=== PATIENT | female | born 1975 | race Caucasian/White ===

== ENCOUNTER 2022-01-05 09:58 | Outpatient (CLI) | payer BC, SELFPAY ==
--- NOTE | ~2022-01-05 | MM_ITS ---
EXAMINATION: MM screening ish BI w paul HISTORY: Screening TECHNIQUE: Craniocaudal and mediolateral oblique 3-D tomosynthesis images were obtained and synthetic 2-D images were generated. CAD analysis was submitted and interpreted. COMPARISON: No prior mammogram is available for comparison at this institution. BREAST PARENCHYMAL COMPOSITION: The breasts are heterogeneously dense, which may obscure small masses . FINDINGS: There are bilateral breast asymmetries in the outer aspect of the right breast best seen on CC view and in the subareolar location of the left breast. There are no suspicious calcifications or architectural distortion. IMPRESSION: 1. Bilateral breast asymmetries. 2. Additional mammographic views and possible breast ultrasound are recommended. BI-RADS Category 0: Incomplete: Needs additional imaging evaluation. Reviewed, dictated and finalized at location A. IMPRESSION: 1. Bilateral breast asymmetries. 2. Additional mammographic views and possible breast ultrasound are recommended . BI-RADS Category 0: Incomplete: Needs additional imaging evaluation.
== END 2022-01-05 09:59 | disposition home or self-care (01) ==
LOC: ANHIMG 10:00
PROVIDERS: Visit Provider Obstetrics & Gynecology
DX: Z12.31 Encounter for screening mammogram for malignant neoplasm of breast (principal)
CPT/HCPCS: 77063; 77067

== ENCOUNTER 2022-01-16 11:53 | Outpatient (CLI) | payer BC, SELFPAY ==
--- NOTE | ~2022-01-16 | MMUS_ITS ---
EXAMINATION: MM diagnostic ish BI w paul, US breast BI complete HISTORY: Follow-up breast asymmetries TECHNIQUE: Additional 3-D tomosynthesis images of the breasts were performed and synthetic 2-D images were generated. CAD analysis was submitted and interpreted. High resolution bilateral complete breas t ultrasound was performed. COMPARISON: 01/05/2022 BREAST PARENCHYMAL COMPOSITION: Breast composed of scattered areas of fibroglandular density FINDINGS: MAMMOGRAPHIC FINDINGS: Bilateral breast asymmetries are less apparent with spot compression views. There are no discrete mas ses or architectural distortion. There are no suspicious calcifications. ULTRASOUND: Complete bilateral US of all 4 quadrants of the breasts and retroareolar region was reviewed. Right breast ultrasound: There are multiple small cysts of the right breast measuring 4 mm or less. T here is a normal-appearing 11 mm lymph node which retains normal fatty hilum. Left breast ultrasound: There are multiple cysts of the left breast measuring up to 4 mm. At 10:00, 2 cm from the nipple there is a slightly irregular shaped 3 mm hypoechoic mass, likely minimally compl icated cyst. IMPRESSION: 1. Probable benign 3 mm left breast mass at 10:00, 2 cm from the nipple. No evidence for malignancy i n the right breast. 2. Recommend 6 month follow-up Limited left breast ultrasound BI-RADS category 3, probably benign findings. Reviewed, dictated and finalized at location A. IMPRESSION: 1. Probable benign 3 mm left breast mass at 10:00, 2 cm from the nipple. No lucy dence for malignancy in the right breast. 2. Recommend 6 month follow-up Limited left breast ultrasound BI-RADS category 3, probably benign findings.
== END 2022-01-16 11:54 | disposition home or self-care (01) ==
LOC: ANHIMG 11:55
PROVIDERS: Visit Provider Obstetrics & Gynecology
DX: R92.8 Other abnormal and inconclusive findings on diagnostic imaging of breast (principal)
CPT/HCPCS: 76641; 77062; 77066; G0279

== ENCOUNTER 2022-06-27 08:41 | Outpatient (CLI) | payer BC, SELFPAY ==
[2022-06-27 08:51] LABS: Hematocrit 42.7 % (35.0-49.0); Hemoglobin 14.6 g/dL (12.0-15.0); Mean Corpuscular HGB Conc 34.2 g/dL (32.0-36.0); Mean Corpuscular Hemoglobin 33.1 pg (27.0-31.0); Mean Corpuscular Volume 96.8 fL (78.0-102.0); Mean Platelet Volume 9.3 fl (9.2-11.8); Platelet Count Result 279 K/mm3 (150-420); Red Blood Count 4.41 M/mm3 (4.20-5.40); Red Cell Distribution Width 11.1 % (11.6-14.4)
[2022-06-27 09:41] LABS: Alanine Aminotransferase 26 U/L (14-59); Albumin Level 3.9 g/dL (3.4-5.0); Alkaline Phosphatase 68 U/L (46-116); Anion Gap 8 mmol/L (8-16); Aspartate Amino Transferase 24 U/L (15-37); Bilirubin,Total 0.8 mg/dL (0.00-1.00); Blood Urea Nitrogen 13 mg/dL (7-18); Calcium 8.9 mg/dL (8.5-10.1); Carbon Dioxide 30 mmol/L (21-32); Chloride 106 mmol/L (98-108); Cholesterol 217 mg/dL (0-200); Estimated Glomerular Filt Rate > 60; Glucose 79 mg/dL (70-99); HDL Direct 88 mg/dL (40-60); LDL Cholesterol Calculated 120 mg/dL (<130); Osmolality Calculated 297 mOsm/kg (285-295); Potassium 4.3 mmol/L (3.5-5.1); Sodium 144 mmol/L (136-145); Total Protein 6.9 g/dL (6.4-8.2); Triglycerides 43 mg/dL (0-150)
[2022-06-27 09:47] LABS: Thyroid Stimulating Hormone Reflex 2.27 u/IU/mL (0.36-3.74)
== END 2022-06-27 08:42 | disposition home or self-care (01) ==
LOC: CHSLAB 08:43
PROVIDERS: PCP Family Medicine; Visit Provider Family Medicine
DX: R06.00 Dyspnea, unspecified (principal); E11.9 Type 2 diabetes mellitus without complications
CPT/HCPCS: 36415; 80053; 80061; 84443; 85027

== ENCOUNTER 2022-07-03 08:21 | Outpatient (CLI) | payer BC, SELFPAY ==
--- NOTE | 2022-07-03 08:25 | EST_ITS ---
Patient Info Name: Priyanka Stern Age: 47 years : 1975 Gender: Female Ht: 67 in Wt: 144 lbs BSA: 1.76 m2 HR: 89 bpm BP: 119 / 87 mmHg Heart Rhythm: Sinus Rhythm Technical Quality: Good Exam Date: 07/03/2022 8:45 AM Exam Location: [facility] Patient Status: Outpatient Admit Date: 07/03/2022 Staff Ordering Physician: Jerod Pete DO Attending Provider: Jerod Pete DO Exercise Technologist: Liyah Beltrán CRT Exercise Physician: Kelley Armenta CEP Exam Type: CA stress test treadmill Study Info Indications Dyspnea - An exercise stress test was performed. History/Risk Factors Dyspnea. Summary 1. 1. Negative Dionicio exercise stress test for ischemic ST changes by ECG criteria. 2. 2. Good functional capacity, achieving 10 METs of workload. 3. 3. Hypertensive response to exercise. 4. 4. Appropriate HR response to exercise. 5. 5. Appropriate HR recovery at 1 minute post exercise. 6. 6. No imaging with stress testing. Protocol: Dionicio Stress ECG Details Stage: REST Duration (min): 1 min : 3 sec Speed (mph): 0.0 Grade (%): 0 HR (bpm): 90 SBP (mmHg): 119 DBP (mmHg): 87 METS: --- Stage: REST Duration (min): 4 min : 36 sec Speed (mph): 0.0 Grade (%): 0 HR (bpm): 100 SBP (mmHg): 119 DBP (mmHg): 87 METS: --- Stage: STAGE 1 Duration (min): 1 min : 0 sec Speed (mph): 1.7 Grade (%): 10 HR (bpm): 107 SBP (mmHg): 119 DBP (mmHg): 87 METS: --- Stage: STAGE 1 Duration (min): 2 min : 0 sec Speed (mph): 1.7 Grade (%): 10 HR (bpm): 122 SBP (mmHg): 119 DBP (mmHg): 87 METS: --- Stage: STAGE 1 Duration (min): 3 min : 0 sec Speed (mph): 1.7 Grade (%): 10 HR (bpm): 121 SBP (mmHg): 169 DBP (mmHg): 71 METS: --- Stage: STAGE 2 Duration (min): 1 min : 0 sec Speed (mph): 2.5 Grade (%): 12 HR (bpm): 139 SBP (mmHg): 169 DBP (mmHg): 71 METS: --- Stage: STAGE 2 Duration (min): 2 min : 0 sec Speed (mph): 2.5 Grade (%): 12 HR (bpm): 146 SBP (mmHg): 169 DBP (mmHg): 71 METS: --- Stage: STAGE 2 Duration (min): 3 min : 0 sec Speed (mph): 2.5 Grade (%): 12 HR (bpm): 150 SBP (mmHg): 169 DBP (mmHg): 69 METS: --- Stage: STAGE 3 Duration (min): 1 min : 0 sec Speed (mph): 3.4 Grade (%): 14 HR (bpm): 162 SBP (mmHg): 169 DBP (mmHg): 69 METS: --- Stage: STAGE 3 Duration (min): 2 min : 0 sec Speed (mph): 3.4 Grade (%): 14 HR (bpm): 168 SBP (mmHg): 169 DBP (mmHg): 69 METS: --- Stage: STAGE 3 Duration (min): 3 min : 0 sec Speed (mph): 3.4 Grade (%): 14 HR (bpm): 171 SBP (mmHg): 217 DBP (mmHg): 80 METS: --- Stage: RECOVERY Duration (min): 1 min : 0 sec Speed (mph): 0.0 Grade (%): 0 HR (bpm): 145 SBP (mmHg): 217 DBP (mmHg):
== END 2022-07-03 08:22 | disposition home or self-care (01) ==
LOC: CHSCARD 08:23
PROVIDERS: PCP Family Medicine; Visit Provider Family Medicine
DX: R06.00 Dyspnea, unspecified (principal)
CPT/HCPCS: 93017

== ENCOUNTER 2022-07-04 10:46 | Outpatient (CLI) | payer BC, OTHER, SELFPAY ==
--- NOTE | ~2022-07-04 | US_ITS ---
US breast LT limited 07/04/2022 11:14 Indication: Follow-up left breast mass Procedure: High-resolution Limited ultrasound of the left breast at 10:00, 2 cm from the nipple Comparison: 01/16/2022 Findings: There is a hypoechoic slightly lobulated mass with parallel configuration measuring 4 x 4 x 2 mm. No significant interval change. No internal vascularity or significant posterior features. At 10:00, 4 cm from the nipple there is an oval hypoechoic mass measuring 3 x 3 x 3 mm, unchanged, likel y a complicated cyst. Impression: 1: Stable left breast masses located at 10:00, 2 cm from the nipple, likely benign. Recommend 6 month follow-up digital diagnostic bilateral mammogram and left breast ultrasound. BI-RADS CATEGORY 3-PROBABLY BENIGN FINDING Reviewed, dictated and finalized at location A. Impression: 1: Stable left breast masses located at 10:00, 2 cm from the nipple, likely daron ign. Recommend 6 month follow-up digital diagnostic bilateral mammogram and left sam ast ultrasound. BI-RADS CATEGORY 3-PROBABLY BENIGN FINDING
== END 2022-07-04 10:47 | disposition home or self-care (01) ==
PROVIDERS: PCP Family Medicine; Visit Provider Obstetrics & Gynecology
DX: R92.8 Other abnormal and inconclusive findings on diagnostic imaging of breast (principal)
CPT/HCPCS: 76642

== ENCOUNTER 2023-01-09 11:21 | Outpatient (CLI) | payer BC, SELFPAY ==
--- NOTE | ~2023-01-09 | MMUS_ITS ---
EXAMINATION: MM diagnostic ish BI w paul, US breast LT limited HISTORY: Six-month follow-up for probably benign left breast masses TECHNIQUE: Craniocaudal, mediolateral, and mediolateral oblique 3-D tomosynthesis images of the left breast were performed and synthetic 2-D images were generated. CAD analysis was submitted and interpr eted. High resolution limited left breast ultrasound was performed. COMPARISON: 07/04/2022, 01/16/2022, 01/05/2022 BREAST PARENCHYMAL COMPOSITION: The breasts are heterogeneously dense, which may obscure small masses . FINDINGS: MAMMOGRAPHIC FINDINGS: No suspicious mass, calcification, or architectural distortion are identified in either breast to sug gest malignancy. There has been no suspicious interval change. ULTRASOUND: There is a stable 4 mm x 2 mm oval, circumscribed, parallel, hypoechoic mass with no posterior featur es or internal vascularity at the 10:00 location, 2 cm from the nipple. Also seen is a stable 3 mm ro und, hypoechoic, circumscribed mass with no posterior features or internal vascularity at the 10:00 l ocation, 4 cm from the nipple. IMPRESSION: 1. Stable left breast masses. 2. Given one year of interval stability, recommend 12 month followup bilateral diagnostic mammogram a nd left breast ultrasound. BI-RADS category 3, probably benign findings. Reviewed, dictated and finalized at location A. IMPRESSION: 1. Stable left breast masses. 2. Given one year of interval stability, recommend 12 month followup bilateral diagnostic mammogram and left breast ultrasound. BI-RADS category 3, probably benign findings.
== END 2023-01-09 11:22 | disposition home or self-care (01) ==
PROVIDERS: PCP Family Medicine; Visit Provider Obstetrics & Gynecology
DX: R92.8 Other abnormal and inconclusive findings on diagnostic imaging of breast (principal)
CPT/HCPCS: 76642; 77062; 77066; G0279

== ENCOUNTER 2023-03-13 00:31 | Day surgery (SDC) | payer BC, SELFPAY ==
[2023-03-02 13:59] VITALS: BMI 23.1
[2023-03-13 06:21] VITALS: BP 120/84; PULSE 71; RESP 18; TEMP 36.2; O2SAT 100; BMI 22.9
[2023-03-13] MEDS: LACTATED RINGERS 1,000 ML 150 ML IV CONT (06:24)
--- NOTE | 2023-03-13 07:19 | P.PNAN_ITS ---
Anes - Initial Pre Proc Eval Procedure: Operation Date: 03/13/23 07:30 Proposed Procedures p Screening Colonoscopy - Merrill Bhat MD Date/Time: 03/13/23 07:19 Surgeon: Merrill Bhat MD Pre Op Diagnosis: neoplasm screening Patient Data Age: 47 Gender: F Height: 1.7 m Weight: 66.4 kg Last Vital Signs Temp 97.1 F L 03/13/23 06:21 Pulse 71 03/13/23 06:21 Resp 18 03/13/23 06:21 BP 120/84 03/13/23 06:21 Pulse Ox 100 03/13/23 06:21 O2 Del Method Room Air 03/13/23 06:21 Allergies Allergy/AdvReac Type Severity Reaction Status Date / Time No Known Allergies Allergy Verified 03/13/23 06:20 Home Medications Medication Instructions Recorded Confirmed Type norethindrone 1 mg-ethinyl 1 tablet PO DAILY 06/27/22 03/02/23 History estradiol 10 mcg (24)-iron 10 mcg(2) tablet (Lo Loestrin Fe) albuterol sulfate 90 mcg/actuation 1 inh inhalation Q4H #8.5 grams 07/10/22 03/02/23 Rx aerosol inhaler montelukast 10 mg tablet See Rx Instructions .Route 09/26/22 03/02/23 Rx .COMPLEX #90 tabs Patient hx anesthesia problems: none Family hx anesthesia problems: none Results Review: All pre-operative results and documents have been reviewed as part of the pre- operative evaluation. [facility] Surgical History Surgical History (System 01/01/23 @ 15:08 by Jonn Oden) H/O lithotripsy H/O wrist surgery H/O: section Social History Social History (System 01/01/23 @ 15:08 by Jonn Oden) Smoking status: Never smoker Alcohol intake: never Substance use: never Substance use type: does not use Living arrangements: with family Additional living arrangements comments: Lives with and children Anes - Eval Final PreProcedure Day of Procedure 03/13/23 07:19 Patient weight: normal Heart: regular rate and rhythm Lungs: clear to auscultation Airway: Mallampati scale class II Neurological: alert and oriented Last oral intake: >/= 8 hours ASA classification: II Emergent: no Anesthetic plan: proceed Anesthesia type and monitoring: general GIVS and standard monitoring Results Review: All pre-operative results and documents have been reviewed as part of the pre- operative evaluation. Informed Consent: The patient's anesthetic plan and its attendant risks and benefits were discussed with the patient/family/POA. Questions were solicited and answers provided to the satisfaction of the patient/family/POA.
--- NOTE | 2023-03-13 07:25 | PM.HPGS ---
History of Present Illness History of Present Illness Consent: Risks, benefits, and alternatives have been discussed and questions answered. Patient agrees to proceed with procedure. Chief complaint: neoplasm screening Narrative: Priyanka Stern is a 47 year old female here for first screening colonoscopy Review of Systems Constitutional: Constitutional: Denies headache(s) and Denies weakness Eyes: Eyes: Denies blurry vision ENT: Reports Normal hearing present, Denies headache(s) and Denies neck pain Cardiovascular: Cardiovascular: Denies chest pain and Denies dyspnea Respiratory: Respiratory: Denies dyspnea Gastrointestinal: Gastrointestinal: Reports no additional gastrointestinal complaints Genitourinary: Genitourinary: Denies dysuria Musculoskeletal: Musculoskeletal: Denies neck pain Integumentary/Breasts: Skin/Breast: Denies dry skin Neurologic: Reports Normal hearing present, Denies headache(s) and Denies weakness Psychiatric: Psychiatric: Denies anxiety Endocrine: Endocrine: Denies change in body appearance Hematologic/Lymphatic: Hematologic/Lymphatic: Denies easy bleeding Allergic/Immunologic: Allergic/Immunologic: Denies urticaria [facility] Past Medical History Medical History (Updated 03/13/23 @ 07:26 by Merrill Bhat MD) Colon cancer screening Surgical History Surgical History (System 01/01/23 @ 15:08 by Jonn Oden) H/O lithotripsy H/O wrist surgery H/O: section Social History Social History (System 01/01/23 @ 15:08 by Jonn Oden) Smoking status: Never smoker Alcohol intake: never Substance use: never Substance use type: does not use Living arrangements: with family Additional living arrangements comments: Lives with and children Meds Home Medications and Allergies Home Medications Medication Instructions Recorded Confirmed Type norethindrone 1 mg-ethinyl 1 tablet PO DAILY 06/27/22 03/02/23 History estradiol 10 mcg (24)-iron 10 mcg(2) tablet (Lo Loestrin Fe) albuterol sulfate 90 mcg/actuation 1 inh inhalation Q4H #8.5 grams 07/10/22 03/02/23 Rx aerosol inhaler montelukast 10 mg tablet See Rx Instructions .Route 09/26/22 03/02/23 Rx .COMPLEX #90 tabs Allergies Allergy/AdvReac Type Severity Reaction Status Date / Time No Known Allergies Allergy Verified 03/13/23 06:20 Vital Signs Vital Signs - 24 hr 03/13/23 06:21 Temperature 97.1 F L Pulse Rate 71 Respiratory Rate 18 Blood Pressure 120/84 Pulse Oximetry 100 Oxygen Delivery Room Air Exam Const: General: comfortable and no acute distress HENMT: Face/Nose/Sinus: Normal nares present Eyes: General: appearance normal, both eyes and all related structures Neck: Neck: no JVD Resp: Auscultation: clear to auscultation bilaterally Cardio: Rate: regular rate Rhythm: regular rhythm GI: Inspection: non-distended GI Palp: Yes Soft to palpation Skin: General skin exam: normal color Neuro: General: gait normal Speech: normal speech Extrem: General: normal to inspection Psych: Mental Status: mental status grossly normal Assessment and Plan Assessment and plan (1) Colon cancer screening: Code(s): Z12.11 - Encounter for screening for malignant neoplasm of colon Status: Acute Assessment and Plan: colonoscopy
[2023-03-13 07:44] VITALS: BP 107/68; PULSE 70; RESP 18; O2SAT 99
[2023-03-13 07:54] VITALS: BP 125/81; PULSE 64; RESP 20; O2SAT 100
[2023-03-13 08:04] VITALS: BP 133/81; PULSE 74; RESP 20; O2SAT 100
== END 2023-03-13 08:06 | disposition home or self-care (01) ==
PROVIDERS: PCP Family Medicine; Visit Provider Internal Medicine Gastroenterology
PROC: 0DJD8ZZ Inspection of Lower Intestinal Tract, Via Natural or Artificial Opening Endoscopic (ICD-10-PCS; CPT 45378; principal; 2023-03-13 07:30)
DX: Z12.11 Encounter for screening for malignant neoplasm of colon (principal); K64.8 Other hemorrhoids; Z79.51 Long term (current) use of inhaled steroids
CPT/HCPCS: 45378; J2704; J7120

== ENCOUNTER 2024-06-17 10:58 | Outpatient (CLI) | payer BC, SELFPAY ==
--- NOTE | ~2024-06-17 | MMUS_ITS ---
EXAMINATION: US breast LT limited, MM diagnostic ish BI w paul HISTORY: Follow-up left breast mass. Dense breasts. TECHNIQUE: Additional 3-D tomosynthesis images of the breasts were performed and synthetic 2-D images were generated. CAD analysis was submitted and interpreted. High resolution Limited left breast ultr asound was performed. COMPARISON: Comparison to multiple prior studies sequentially, with oldest reviewed study dated 01/05. BREAST PARENCHYMAL COMPOSITION: Dense: The breasts are heterogeneously dense, which may obscure small masses FINDINGS: MAMMOGRAPHIC FINDINGS: ULTRASOUND: Limited left breast ultrasound: At 10:00, 4 cm from the nipple there is an oval hypoechoic 3 mm mass without significant change from prior examination. No internal vascularity or significant posterior f eatures. At 10:00, 2 cm from the nipple there is a stable 2 mm cyst. Also at 10:00, 2 cm from the nip ple there is a 2 mm oval hypoechoic mass with low level internal echoes, likely benign. IMPRESSION: 1. Probable benign left breast masses. 2. Given one year of interval stability, recommend 12 month followup bilateral screening mammogram an d Limited left breast ultrasound BI-RADS category 3, probably benign findings. Reviewed, dictated and finalized at location B. IMPRESSION: 1. Probable benign left breast masses. 2. Given one year of interval stability, recommend 12 month followup bilateral screening mammogram and Limited left breast ultrasound BI-RADS category 3, probably benign findings.
== END 2024-06-17 10:59 | disposition home or self-care (01) ==
LOC: ANHIMG 10:59
PROVIDERS: PCP Family Medicine; Visit Provider Obstetrics & Gynecology
DX: R92.8 Other abnormal and inconclusive findings on diagnostic imaging of breast (principal)
CPT/HCPCS: 76642; 77062; 77066; G0279

== ENCOUNTER 2024-09-23 09:54 | Outpatient (CLI) | payer BC, SELFPAY ==
[2024-09-23 10:13] LABS: Basophils Absolute Auto 0.07 K/mm3 (0.00-0.10); Basophils Percent Auto 1.4 % (0.0-1.0); Eosinophils Absolute Auto 0.33 K/mm3 (0.02-0.50); Eosinophils Percent Auto 6.4 % (1.0-6.0); Hematocrit 41.6 % (35.0-49.0); Hemoglobin 14.3 g/dL (12.0-15.0); Immature Granulocyte Absolute 0.01 K/mm3 (0.00-0.00); Immature Granulocyte Percent A 0.2 % (0.0-0.0); Lymphocytes Absolute Auto 2.04 K/mm3 (1.10-4.50); Lymphocytes Percent Auto 39.5 % (18.0-42.0); Mean Corpuscular HGB Conc 34.4 g/dL (32-36); Mean Corpuscular Hemoglobin 32.1 pg (27.0-31.0); Mean Corpuscular Volume 93.5 fL (78.0-102.0); Mean Platelet Volume 9.3 fl (9.2-11.8); Monocytes Absolute Auto 0.29 K/mm3 (0.10-0.90); Monocytes Percent Auto 5.6 % (2.0-11.0); Neutrophils Absolute Auto 2.43 K/mm3 (1.70-7.20); Neutrophils Percent Auto 46.9 % (50.0-70.0); Platelet Count Result 267 K/mm3 (150-420); Red Blood Count 4.45 M/mm3 (4.20-5.40); Red Cell Distribution Width 11.4 % (11.6-14.4); White Blood Count 5.2 K/mm3 (4.8-10.8)
[2024-09-23 11:07] LABS: Alanine Aminotransferase 24 U/L (14-59); Albumin Level 3.9 g/dL (3.4-5.0); Alkaline Phosphatase 70 U/L (46-116); Anion Gap 9 mmol/L (4-12); Aspartate Amino Transferase 16 U/L (15-37); Bilirubin,Total 0.6 mg/dL (0.00-1.00); Blood Urea Nitrogen 12 mg/dL (7-18); Calcium 8.9 mg/dL (8.5-10.1); Carbon Dioxide 29 mmol/L (21-32); Chloride 105 mmol/L (98-108); Cholesterol 211 mg/dL (0-200); Estimated Glomerular Filt Rate > 60; Glucose 80 mg/dL (70-99); HDL Direct 82 mg/dL (40-60); LDL Cholesterol Calculated 121 mg/dL (<130); Osmolality Calculated 294 mOsm/kg (285-295); Potassium 3.9 mmol/L (3.5-5.1); Sodium 143 mmol/L (136-145); Total Protein 6.8 g/dL (6.4-8.2); Triglycerides 39 mg/dL (0-150)
[2024-09-23 11:08] LABS: Thyroid Stimulating Hormone Reflex 1.76 u/IU/mL (0.36-3.74)
== END 2024-09-23 09:55 | disposition home or self-care (01) ==
PROVIDERS: PCP Family Medicine; Visit Provider Family Medicine
DX: Z00.00 Encounter for general adult medical examination without abnormal findings (principal); E03.9 Hypothyroidism, unspecified
CPT/HCPCS: 36415; 80053; 80061; 84443; 85025

== ENCOUNTER 2025-06-30 10:24 | Outpatient (CLI) | payer BC, SELFPAY ==
--- NOTE | ~2025-06-30 | MMUS_ITS ---
EXAMINATION: MM diagnostic ish BI w paul, US breast LT limited INDICATION: 50-year old female; BI-RADS 3, follow-up sonographic probably benign left breast masses. Annual right mammogram. COMPARISON: 06/17/2024 through 01/05/2022 TECHNIQUE: Digital breast tomosynthesis True lateral and spot compression CC and MLO views of the BILATERAL breast were obtained with computer-aided detection to assist in interpretation of the study. MAMMOGRAM FINDINGS: There are scattered areas of fibroglandular density. There are no suspicious masses, calcifications, architectural distortion or any other abnormality in either breast. LEFT BREAST ULTRASOUND FINDINGS: Targeted evaluation of the areas of concern was completed. The previously reported probably benign mass at 10:00, 4 cm FN location has resolved in the interval. IMPRESSION: Benign findings. No mammographic evidence of malignancy in either breast.. RECOMMENDATION: Annual screening mammography in 12 months. BI-RADS 2, BENIGN Reviewed, dictated and finalized at location B. IMPRESSION: Benign findings. No mammographic evidence of malignancy in either breast.. RECOMMENDATION: Annual screening mammography in 12 months. BI-RADS 2, BENIGN
== END 2025-06-30 10:25 | disposition home or self-care (01) ==
LOC: ANHFOHIMG 10:25
PROVIDERS: PCP Family Medicine; Visit Provider Obstetrics & Gynecology
DX: R92.8 Other abnormal and inconclusive findings on diagnostic imaging of breast (principal)
CPT/HCPCS: 76642; 77062; 77066; G0279